=== PATIENT | male | born 1980 | race Caucasian/White ===

== ENCOUNTER 2017-07-04 13:10 | Emergency (ER) | payer OTHER, BC ==
[~2017-07-04] VITALS: Ht 195.6 cm; Wt 128.1 kg
[2017-07-04] MEDS ORDERED: ROBAXIN750 MG PO (15:23)
[2017-07-04] MEDS ORDERED: NAPROSYN500 MG PO (15:23)
[2017-07-04 15:37] VITALS: BP 132/88
== END 2017-07-04 15:38 | disposition home or self-care (01) ==
LOC: EME 13:10
DX: M54.5 Low back pain (principal); I10 Essential (primary) hypertension
CPT/HCPCS: 99281; 99284